=== PATIENT | female | born 1990 | race Caucasian/White ===

== ENCOUNTER → 2017-05-29 | Day surgery (SDC) | payer OTHER ==
[~2017-05-29] MED LIST: ACETAMINOPHEN/HYDROcodone 325 MG/5 MG TAB ONE; BUPIVACAINE/EPINEPHRINE 0.25% PF 30 ML VIAL ONE; CIPR500T4 PO; DIFL150T PO; KETOROLAC TROMETHAMINE 30 MG/ML (IVP) VIAL IV PUSH ONE; LACTATED RINGER S IV ONE; LIDOCAINE 1.5%/EPINEPHrine 1:200,000 PF SOLN 30 ML AMP ONE; MEPERIDINE HCL 50 MG/ML VIAL ONE; MIDAZOLAM HCL 2 MG/2 ML VIAL ONE; NORC7.5T PO; PROPOFOL 200 MG/20 ML AMP IV ONE; SODIUM CHLOR 0.9% 1000 ML BAG IV ONE; VIST25CA PO
--- NOTE | 2017-05-29 14:57 | MP ---
cc: SHON GUARDADO MD DATE OF SURGERY: 05/29/2017 LOCATION OF SURGERY: [facility] DATE OF : 1990 PREOPERATIVE DIAGNOSIS 1. Pelvic pain, suspected endometriosis, dysmenorrhea, heavy menstrual bleeding. POSTOPERATIVE DIAGNOSIS 1. Pelvic pain, suspected endometriosis. 2. Confirmed endometriosis. 3. abdominal / pelvic adhesions. PROCEDURE 1. Diagnostic hysteroscopy, dilation and curettage. 2. Diagnostic laparoscopy, ablation and resection of endometriosis and lysis of adhesions. SURGEON Dr. Shon Guardado. ENGRAVER None. FINDINGS 1. Normal external female genitalia, vagina and cervix. 2. Normal intrauterine cavity assessment, normal bilateral tubal ostia. 3. Intraabdominal survey revealed focal nodular endometriosis of the uterosacral ligaments bilaterally with some adhesions from the right pelvic sidewall to the right uterosacral, these were non-infiltrative and superficial-appearing. 4. Right pelvic/abdominal wall adhesions at the superior aspect of the pelvic brim to the right abdominal and anterior right sidewall of the appendix and colon were adhesed loosely. 5. Abdomen otherwise free of adhesions, normal uterus, fallopian tubes, ovaries bilaterally. 6. With close inspection of the pelvic peritoneum within a centimeter, there was no vesicular or evidence of endometriosis outside of the uterosacrals and cul-de-sac, the cul-de-sac was not obliterated, no endometriosis in the anterior aspect of the uterus around the bladder, the ovarian fossa were clear as well. 7. Normal appendix. Photos obtained of most of above ANESTHESIA LMA. SPECIMEN 1. Endometrial curettings. 2. Peritoneal biopsies overlying the uterosacrals, suspected endometriosis. ESTIMATED BLOOD LOSS 20 ccs. FLUID REPLACEMENT 1 liter. URINE OUTPUT 150 ccs via Mahan. DVT PROPHYLAXIS Sequential compression devices throughout the case. ANTIBIOTICS None required. COUNTS Correct x 2. TIMEOUT Done and correct. DISPOSITION Stable to Post Anesthesia Care Unit then home. INDICATIONS This patient is a 27-year-old G0, female, who was seen in the outpatient setting for dysmenorrhea that was refractory to oral contraceptives and episodes of heavy menstrual bleeding. She was counseled on options and desired surgical management. We discussed hysteroscopy, dilation and curettage with diagnostic laparoscopy with resection and/or ablation of endometriosis, please see consent and H&P for further details. DESCRIPTION OF PROCEDURE The patient was taken to the operating room and placed in lithotomy in Matthew stirrups. The left arm was tucked and the abdomen was prepped and draped in a sterile fashion. The mahan and then speculum was inserted and tenaculum applied to the anterior lip of the cervix. The uterus was serially dilated to 14 with Star dilators, the hysteroscope was inserted and distended with 60cc of saline, a survey performed then a gentle sharp D&C was performed. A HUMI manipulator was inserted into the uterus and the speculum removed. Attention was turned to the abdomen. Local anesthesia , 1.5% lidocaine was used at the umbilicus and the two left lower quadrant ports, 5 mm incisions were made, first at the umbilicus and under direct optical trocar technique the abdomen was entered and insufflated with C02 gas, two left lower quadrant trocars were inserted under direct abdominal visualization. A survey was performed, see the above findings. Using the scissors and a combination of cut and coag the endometriosis was resected and ablated in the affected areas, noting to be away from the ureters bilaterally. The bowel adhesions were lysed with cold scissors until they were more dense involving epiploic fat and omentum, then the Harmonic was used to lyse these. All surgical sites were hemostatic, the abdomen was desufflated. Trocars were removed and the skin was closed with 4-0 Monocryl in a subcuticular fashion and skin glue applied overlying, the uterine manipulator was removed and the Mahan as well. The patient was awoken from anesthesia and transferred to Post Anesthesia Care Unit in stable condition. MD CA Braun/OUMAR /1:50 PM /2:12 PM LIZZETH
== END | disposition home or self-care (01) ==
LOC: ESDC 06:23
PROVIDERS: ATTEND Obstetrics & Gynecology
DX: N80.9 Endometriosis, unspecified (principal); N73.6 Female pelvic peritoneal adhesions (postinfective); N94.6 Dysmenorrhea, unspecified
CPT/HCPCS: 00952; 58563; 88305; J1885; J2175; J2250; J3010; J7030; J7120

== ENCOUNTER 2017-06-11 12:42 | Emergency (ER) | payer OTHER ==
[~2017-06-11] VITALS: Ht 157.5 cm; Wt 79.0 kg
[~2017-06-11 12:42] MED LIST changes: -ACETAMINOPHEN/HYDROcodone 325 MG/5 MG TAB ONE; -BUPIVACAINE/EPINEPHRINE 0.25% PF 30 ML VIAL ONE; -KETOROLAC TROMETHAMINE 30 MG/ML (IVP) VIAL IV PUSH ONE; -LACTATED RINGER S IV ONE; -LIDOCAINE 1.5%/EPINEPHrine 1:200,000 PF SOLN 30 ML AMP ONE; -MEPERIDINE HCL 50 MG/ML VIAL ONE; -MIDAZOLAM HCL 2 MG/2 ML VIAL ONE; -PROPOFOL 200 MG/20 ML AMP IV ONE; -SODIUM CHLOR 0.9% 1000 ML BAG IV ONE
[2017-06-11 12:43] VITALS: BP 145/78; PULSE 135; RESP 24; TEMP 100.2; O2SAT 98
[2017-06-11] MEDS ORDERED: AYGE5TAB PO (12:54)
[2017-06-11] MEDS ORDERED: HYDR-3288 PO (12:54)
[2017-06-11] MEDS ORDERED: GABA600T PO (12:54)
[2017-06-11] MEDS ORDERED: ACETAMINOPHEN 325 MG TAB PO ONE (13:30)
--- NOTE | 2017-06-11 13:52 | PD ---
HPI Chief Complaint: Cold / Flu Symptoms Time Seen by Provider: 13:23 Travel History International Travel<30 days: No Contact w/Intl Traveler<30days: No Traveled to known affect area: No History of Present Illness HPI 27-year-old female presents to the ED for evaluation of one week history of fevers and cough. Patient endorses sinus congestion. States that her cough is productive of green phlegm. She denies ear pain, runny nose, sore throat, chest pain, shortness of breath, abdominal pain, dysuria. She endorses chronic back pain. No worse today. She states that she had a laparoscopy on 05/29 for endometriosis. Her follow-up appointment is next week. She treated at home with NyQuil, last dose around 3 AM. She did not receive this years flu shot. PFSH Past Medical History Diminished Hearing: No Genitourinary: Yes (ENDOMETRIOSIS) Neurologic: Yes (CHRONIC BACK PAIN) Immunizations Current: Yes Tetanus Vaccination: Unknown Influenza Vaccination: No ?: Not LMP: 06/01/17 : 0 Ovarian Cysts: Yes Past Surgical History Genitourinary Surgery: Yes (LAPOROSCOPY; HYSTOSCOPY) Social History Alcohol Use: Yes ("SOCIALLY") Tobacco Use: No Substance Use: No Allergies-Medications (Allergen,Severity, Reaction): Coded Allergies: No Known Allergies (Unverified , 09/17/14) Reported Meds & Prescriptions Reported Meds & Active Scripts Active Macrobid (Nitrofurantoin Monoh/Nitrofur Macro) 100 Mg Cap 100 Mg PO BID 7 Days Reported Gabapentin 600 Mg Tab 600 Mg PO TID [place] (Hydrocodone-Acetaminophen) 7.5-325 mg Tab 1 Tab PO Q6H PRN Aygestin (Norethindrone Acetate) 5 Mg Tab 5 Mg PO DAILY Review of Systems Except as stated in HPI: all other systems reviewed are Neg Physical Exam Narrative GENERAL: Well-nourished, well-developed white female in no acute distress. SKIN: Focused skin assessment warm/dry. HEAD: Normocephalic. EYES: No scleral icterus. No injection or drainage. ENT: Serous effusion bilateral tympanic membranes pearly hidalgo without loss of landmarks. Oropharynx without erythema, edema, exudate. NECK: Supple, trachea midline. No JVD or lymphadenopathy. CARDIOVASCULAR: Regular rate and rhythm without murmurs, gallops, or rubs. RESPIRATORY: Breath sounds clear and equal bilaterally. No accessory muscle use. GASTROINTESTINAL: Abdomen soft, non-tender, nondistended. Well healing surgical wounds without signs of infection. Active bowel sounds. MUSCULOSKELETAL: No cyanosis, or edema. BACK: Nontender without obvious deformity. No CVA tenderness. Data Data Last Documented VS Vital Signs Date Time Temp Pulse Resp B/P (MAP) Pulse Ox O2 Delivery O2 Flow Rate FiO2 06/11/17 15:43 98.0 105 19 118/71 (87) 97 Room Air Orders Orders Influenzae A/B Antigen (06/11/17 13:24) Acetaminophen (Tylenol) (06/11/17 13:30) Urinalysis - C+S If Indicated (06/11/17 13:49) Chest, Single Ap (06/11/17 ) Urine Culture (06/11/17 13:56) ^ Insert Iv (06/11/17 14:44) Sodium Chlor 0.9% 1000 Ml Inj (Ns 1000 M (06/11/17 14:45) Ceftriaxone Inj (Rocephin Inj) (06/11/17 14:45) Ibuprofen (Motrin) (06/11/17 15:15) Ed Discharge Order (06/11/17 15:50) Labs Laboratory Tests Test 06/11/17 13:56 Urine Color LIGHT-RED Urine Turbidity HAZY Urine pH 5.5 Urine Specific [place] 1.024 Urine Protein 30 mg/dL Urine Glucose (UA) NEG mg/dL Urine Ketones NEG mg/dL Urine Occult Blood LARGE Urine Nitrite NEG Urine Bilirubin NEG Urine Urobilinogen LESS THAN 2.0 MG/DL Urine Leukocyte Esterase SMALL Urine RBC /hpf Urine WBC 28 /hpf Urine Squamous Epithelial Cells 4 /hpf Urine Bacteria FEW /hpf Urine Mucus FEW /lpf Urine Yeast (Budding) OCC Microscopic Urinalysis Comment CULTURE INDICATED MDM Medical Decision Making Medical Screen Exam Complete: Yes Emergency Medical Condition: Yes Differential Diagnosis Viral syndrome versus influenza versus UTI versus wound infection versus pneumonia versus other Narrative Course 27-year-old female presents to the ED for evaluation of one week history of fevers and cough. Patient endorses sinus congestion. States that her cough is productive of green phlegm. She denies ear pain, runny nose, sore throat, chest pain, shortness of breath, abdominal pain, dysuria, vaginal discharge. She endorses chronic back pain, no worse today. She states that she had a laparoscopy on 05/29. Her follow-up appointment is next week. Patient's febrile and tachycardic on presentation. On physical exam she is non-toxic- appearing. ENT exam reveals bilateral serous and panic effusion without signs of infection. Abdomen with well healing surgical wounds, soft, nontender. No CVA tenderness. Clear to auscultation bilaterally. Patient was administered Tylenol by mouth. Chest x-ray reveals no acute infiltrate. Rapid flu swab negative. UA is light red, hazy, large occult blood, small leukocyte esterase, 28 wbc's, few bacteria, few yeast. Culture pending. Fever is not improved. IV was established. Patient was administered 1 L normal saline, 1 g Rocephin IV. Vitals improved on recheck. This is UTI, upper airway cough syndrome, vaginal candidiasis. Patient's prescribed Macrobid 100 mg twice a day 7 days. She is instructed treat with OTC yeast treatments, OTC medications containing decongestants for her cough. We discussed reasons to return to the ED. She is instructed to follow up as planned if symptoms improved. She indicated understanding of the instructions. She is stable and discharged home. Diagnosis Primary Impression: Urinary tract infection Qualified Codes: N39.0 - Urinary tract infection, site not specified; R31.9 - Hematuria, unspecified Additional Impressions: Viral syndrome Vaginal candidiasis Referrals: Duty Officer Patient Instructions: General Instructions, Urinary Tract Infection in Women ( ED), Viral Syndrome (ED) Additional Instructions: Rest, hydrate. Take antibiotics as they are prescribed until every pill is gone. Alternating Tylenol and ibuprofen every 4-6 hours as needed for continued fevers. Treat with an OTC yeast infection treatment. Treat cough symptoms with OTC medications. I recommend Mucinex D. Follow-up with the workers compensation administrator as planned. Return to the ED for worsening symptoms or any urgent or emergent medical condition. Med/Other Pt SpecificInfo: Prescription(s) given Scripts Nitrofurantoin Monohydrate Macrocrystals (Macrobid) 100 Mg Cap 100 MG PO BID for Infection for 7 Days, #14 CAP 0 Refills Prov: Bobbi Bello MD 06/11/17 Disposition: 01 DISCHARGE HOME Condition: Stable Scarlet Ramirez Jun 11, 2017 13:52
--- NOTE | 2017-06-11 14:19 | RADRPT ---
EXAM DATE/TIME: 06/11/2017 13:59 [facility] COMPARISON: CHEST SINGLE AP, April 11, 2015, 0:40. INDICATIONS : Fever, Cough, [place]. MEDICAL HISTORY : None. SURGICAL HISTORY : None. ENCOUNTER: Initial ACUITY: 2 days PAIN SCORE: 5/10 LOCATION: Bilateral chest Upper. FINDINGS: A single view of the chest demonstrates the lungs to be symmetrically aerated without evidence of mas s, infiltrate or effusion. The cardiomediastinal contours are unremarkable. Osseous structures are intact. CONCLUSION: No acute disease. Damian Serrato MD FACR on June 11, 2017 at 14:17 Board Certified Radiologist. This report was verified electronically.
[2017-06-11 14:23] LABS: BACTERIA, URINE FEW /hpf; BILIRUBIN, URINE NEG (NEG); BLOOD, URINE LARGE (NEG); GLUCOSE,URINE NEG (NEG); KETONE, URINE NEG (NEG); MUCUS URINE FEW /lpf (OCC); NITRITE,URINE NEG (NEG); PH, URINE 5.5 (5.0-8.5); SQUAMOUS EPITHELIAL CELL URINE 4 /hpf (0-5); URINE LEUKOCYTE ESTERASE SMALL (NEG)
[2017-06-11 14:24] LABS: URINE COLOR LIGHT-RED (YELLW/STRAW)
[2017-06-11] MEDS ORDERED: SODIUM CHLOR 0.9% 1000 ML INJ 1,000 ML IV ONE (14:45)
[2017-06-11] MEDS ORDERED: cefTRIAXone INJ 1,000 MG in SODIUM CHLORIDE 0.9% INJ 100 ML IV ONE (14:45)
--- NOTE | 2017-06-11 14:46 | PD ---
Physical Exam Date Seen by Provider: Jun 11, 2017 Narrative This patient presents with a fever and cold symptoms. She is status post prescribing surgery on 05/29 for endometriosis. Data Data Last Documented VS Vital Signs Date Time Temp Pulse Resp B/P (MAP) Pulse Ox O2 Delivery O2 Flow Rate FiO2 06/11/17 15:43 98.0 105 19 118/71 (87) 97 Room Air Orders Orders Influenzae A/B Antigen (06/11/17 13:24) Acetaminophen (Tylenol) (06/11/17 13:30) Urinalysis - C+S If Indicated (06/11/17 13:49) Chest, Single Ap (06/11/17 ) Urine Culture (06/11/17 13:56) ^ Insert Iv (06/11/17 14:44) Sodium Chlor 0.9% 1000 Ml Inj (Ns 1000 M (06/11/17 14:45) Ceftriaxone Inj (Rocephin Inj) (06/11/17 14:45) Ibuprofen (Motrin) (06/11/17 15:15) Labs Laboratory Tests Test 06/11/17 13:56 Urine Color LIGHT-RED Urine Turbidity HAZY Urine pH 5.5 Urine Specific [place] 1.024 Urine Protein 30 mg/dL Urine Glucose (UA) NEG mg/dL Urine Ketones NEG mg/dL Urine Occult Blood LARGE Urine Nitrite NEG Urine Bilirubin NEG Urine Urobilinogen LESS THAN 2.0 MG/DL Urine Leukocyte Esterase SMALL Urine RBC /hpf Urine WBC 28 /hpf Urine Squamous Epithelial Cells 4 /hpf Urine Bacteria FEW /hpf Urine Mucus FEW /lpf Urine Yeast (Budding) OCC Microscopic Urinalysis Comment CULTURE INDICATED MDM Supervised Visit with ABEL: Yes Narrative Course I, Dr. Bello, have reviewed the advance practice practitioner's documentation and am in agreement, met with the patient face to face, made the diagnosis, and the medical decision making was done by me. *My assessment and Findings: Temperature is 100.2. She is tachycardic at about 135. Chest x-ray is negative for infiltrate. UA is suggestive of urinary tract infection. She'll be treated with IV fluids and IV Rocephin. Vital signs will then be reassessed. The patient's vital signs have improved with IV fluids and IV Rocephin. She will be discharged to home. Diagnosis Primary Impression: Urinary tract infection Qualified Codes: N39.0 - Urinary tract infection, site not specified; R31.9 - Hematuria, unspecified Additional Impressions: Vaginal candidiasis Viral syndrome Referrals: Jewelry Making Instructor Patient Instructions: General Instructions, Urinary Tract Infection in Women ( ED), Viral Syndrome (ED) Disposition: 01 DISCHARGE HOME Condition: Stable Bobbi Bello MD Jun 11, 2017 14:46
[2017-06-11 15:01] VITALS: BP 114/65; PULSE 110; RESP 19; TEMP 100.3; O2SAT 98
[2017-06-11] MEDS ORDERED: IBUPROFEN 800 MG TAB PO ONE (15:15)
[2017-06-11 15:43] VITALS: BP 118/71; PULSE 105; RESP 19; TEMP 98; O2SAT 97
[2017-06-11] MEDS ORDERED: MACR100C2 PO (15:50)
[2017-06-11 16:25] VITALS: BP 118/71; TEMP 98
== END 2017-06-11 16:26 | disposition home or self-care (01) ==
LOC: NEPD 12:42
DX: N39.0 Urinary tract infection, site not specified (principal); B96.89 Other specified bacterial agents as the cause of diseases classified elsewhere; R31.9 Hematuria, unspecified; B37.3 Candidiasis of vulva and vagina; B34.9 Viral infection, unspecified; R00.0 Tachycardia, unspecified
CPT/HCPCS: 71010; 81001; 87086; 87804; 96361; 96365; 99284; J0696; J7030